=== PATIENT | female | born 1965 | race Caucasian/White ===

== ENCOUNTER 2020-07-21 20:17 | Observation (INO) | payer OTHER ==
[~2020-07-21] VITALS: Ht 154.9 cm; Wt 72.7 kg
[2020-07-21] MEDS ORDERED: SPRYCEL20 MG PO (20:21)
[2020-07-21] MEDS ORDERED: LISINOPRIL-HCT1 EAC8 PO (20:22)
--- NOTE | 2020-07-21 20:52 | NUR ---
US TECH AT BEDSIDE FOR DOPPLER STUDY
--- NOTE | 2020-07-21 22:39 | NUR ---
CCOVID SCREENING SWAB TO LAB. PT AWAKE AND ALERT. VOICES NO COMPLAINTS. IS AWARE OF ADMISSION STATUS AND THAT SHE WILL BE STAYING IN ED TONIGHT.
--- NOTE | 2020-07-21 23:10 | NUR ---
ATTEMPTED TO CALL REPORT. NURSE NOT AVAILABLE
--- NOTE | 2020-07-21 23:30 | NUR ---
PT FROM ER VIA WHEELCHAIR, PT AMBULATED TO BED, RESP EVEN AND UNLABORED, NO DISTRESS NOTED, SPOUSE AT BEDSIDE, CL IN REACH, SR UP X 2.
[2020-07-21 23:48] VITALS: BP 140/54
[2020-07-22 00:27] VITALS: BP 140/54; Ht 154.9 cm; Wt 72.7 kg
[2020-07-22 04:00] VITALS: BP 126/66
[2020-07-22 06:07] LABS: BASOPHILS 0.7 % (0-2); EOSINOPHILS 3.4 % (0-7); HEMATOCRIT 38.2 % (36.0-48.0); HEMOGLOBIN 12.4 g/dL (12-16); IMMATURE GRANULOCYTES 0.3 % (0-5); LYMPHOCYTES 33.1 % (15-50); MCH 28.7 pg (26.0-34.0); MCHC 32.5 g/dL (31.0-37.0); MCV 88.4 fL (80.0-100.0); MEAN PLATELET VOLUME 9.2 fL (7.4-10.4); MONOCYTES 13.7 % (2-11); NEUTROPHILS 48.8 % (40-80); PLATELET COUNT 356 10x3/uL (130-400); RBC 4.32 10x6/uL (4.00-5.40); RDW 12.8 % (11.5-14.5); WBC 6.7 10x3/uL (4.8-10.8)
[2020-07-22 06:38] LABS: ALBUMIN 3.4 g/dL (3.4-5.0); ALKALINE PHOSPHATASE 57 U/L (30-120); ALT (SGPT) 15 U/L (10-68); BILIRUBIN - TOTAL 0.28 mg/dL (0.2-1.3); CALC OSMOLALITY 280 mosm/kg (275-300); CALCIUM 9.4 mg/dL (8.5-10.1); CARBON DIOXIDE 23.6 mmol/L (21.0-32.0); CHLORIDE - SERUM 108 mmol/L (98-107); CREATININE - SERUM 0.5 mg/dL (0.6-1.3); GLUCOSE 100 mg/dL (74-106); MAGNESIUM - SERUM 1.9 mg/dL (1.8-2.4); PHOSPHOROUS 4.5 mg/dL (2.5-4.9); POTASSIUM - SERUM 3.7 mmol/L (3.5-5.1); SODIUM 140 mmol/L (136-145); UREA NITROGEN 17 mg/dL (7-18); eGFR NON AFRICAN AMERICAN > 90 mL/min (90-120)
--- NOTE | 2020-07-22 08:01 | NUR ---
RESTING IN BED, NO DISTRESS NOTED, SL IN PLACE, TELE IN PLACE, NO S/S OF TIA
[2020-07-22 08:10] VITALS: BP 125/67
[2020-07-22 11:51] LABS: CHOL - HDL RATIO 5.8 ratio (2.3-4.1)
[2020-07-22 12:29] VITALS: BP 147/60
[2020-07-22] MEDS ORDERED: ECOTRIN325 MG PO (13:05)
[2020-07-22] MEDS ORDERED: LIPITOR20 MG PO (13:05)
--- NOTE | 2020-07-22 15:44 | NUR ---
AWAITING ECHO TO SEND PT HOME
--- NOTE | 2020-07-22 16:19 | NUR ---
DC INSTRUCTIONS GIVEN TO PT, IV REMOVED, TIP INTACT, TAKEN OUT PER WC
== END 2020-07-22 16:28 | disposition home or self-care (01) ==
LOC: D.ER 20:17 → OBSVTIME 22:23 → D.MS 22:23
PROVIDERS: Family Medicine; ADMIT Emergency Medicine; ATTEND Emergency Medicine
DX: G45.9 Transient cerebral ischemic attack, unspecified (principal); I10 Essential (primary) hypertension; Z85.6 Personal history of leukemia; R20.2 Paresthesia of skin